=== PATIENT | male | born 1970 | race African-American/Black ===

== ENCOUNTER → 2024-09-21 09:24 | Outpatient (CLI) | payer OTHER, SELFPAY ==
--- NOTE | 2024-09-21 09:31 | DI.RAD.S_ITS ---
PROCEDURE: XR LUMBAR SPINE 2-3V INDICATIONS: BACK PAIN TECHNIQUE: 3 views of the lumbar spine were acquired. COMPARISON: None. FINDINGS: Lumbar spine curvature and alignment: Slight idiopathic levo scoliotic curve appreciated. Bones: There are no osseous abnormalities. Disc spaces: Mild L4-5 and moderate L5-S1 degenerative disc and facet disease appreciated . The S1-2 disc is partially developed Soft tissues: No soft tissue swelling, calcification or mass. IMPRESSION: Degeneration Dictated by: Gil Rivas M.D. on 09/22/2024 at 7:09 Approved by: Gil Rivas M.D. on 09/22/2024 at 7:11
== END ==
LOC: RAD 09:28
PROVIDERS: Referring Provider Internal Medicine Cardiovascular Disease; Visit Provider Internal Medicine Cardiovascular Disease
DX: M51.360 Other intervertebral disc degeneration, lumbar region with discogenic back pain only (principal); M51.370 Other intervertebral disc degeneration, lumbosacral region with discogenic back pain only; M47.816 Spondylosis without myelopathy or radiculopathy, lumbar region; M47.817 Spondylosis without myelopathy or radiculopathy, lumbosacral region
CPT/HCPCS: 72100